=== PATIENT | female | born 1980 | race Caucasian/White ===

== ENCOUNTER 2020-12-04 10:38 | Outpatient (CLI) | payer OTHER | END 2020-12-04 10:49 | disposition home or self-care (01) | LOC: SONOGRAMA 10:38 | PROVIDERS: ATTEND Pathology Anatomic Pathology & Clinical Pathology | DX: E04.2 Nontoxic multinodular goiter (principal) ==

== ENCOUNTER → 2021-10-05 | Outpatient (CLI) | payer OTHER | END | disposition home or self-care (01) | LOC: RX STUDY 10:36 | DX: N97.1 Female infertility of tubal origin (principal) ==

== ENCOUNTER 2022-06-03 12:59 | Outpatient (CLI) | payer OTHER | END 2022-06-03 13:00 | disposition home or self-care (01) | LOC: SONOGRAMA 12:59 | DX: E04.2 Nontoxic multinodular goiter (principal) ==

== ENCOUNTER 2022-07-12 11:30 | Outpatient (CLI) | payer OTHER | END 2022-07-12 11:33 | disposition home or self-care (01) | LOC: SONOGRAMA 11:30 | PROVIDERS: ATTEND Pathology Anatomic Pathology & Clinical Pathology | DX: E04.2 Nontoxic multinodular goiter (principal) ==

== ENCOUNTER 2023-05-10 10:54 | Outpatient (CLI) | payer OTHER | END 2023-05-10 13:45 | disposition home or self-care (01) | LOC: MRI 10:54 | DX: E04.2 Nontoxic multinodular goiter (principal); R22.1 Localized swelling, mass and lump, neck; M54.59 Other low back pain; M54.2 Cervicalgia | CPT/HCPCS: 72149 ==

== ENCOUNTER 2023-11-11 12:30 | Emergency (ER) | payer OTHER ==
[~2023-11-11] VITALS: Ht 160 cm; Wt 65.8 kg
[2023-11-11 15:30] LABS: URINE APPEARANCE Clear; URINE BILIRRUBIN Negative (NEGATIVE); URINE BLOOD Negative; URINE COLOR Yellow; URINE GLUCOSE Negative (NEGATIVE); URINE LEUKOCYTE Negative; URINE NITRATE Negative; URINE PROTEIN Negative (NEGATIVE); URINE UROBILINOGEN 0.2 E.U./dl
[2023-11-11 15:31] LABS: HEMATOCRIT 38.7 % (36.0-45.00); HEMOGLOBIN 13.2 g/dL (12.0-15.00); MEAN CELL VOLUME 89.2 fL (80.00-100.00); MEAN CORPUSCULAR HEMOGLOBIN 30.4 pg (27.00-32.0); MEAN CORPUSCULAR HGB CONC 34.1 g/dl (32.0-36.0); PLATELET COUNT 355 K/uL (150-450); RED BLOOD COUNT 4.33 M/uL (4.00-6.00); RED CELL DISTRIBUTION WIDTH 13.8 % (11.5-14.5)
[2023-11-11 15:34] LABS: URINE BACTERIA 236.7 uL (0.0-1933); URINE EPITHELIAL CELLS 7.1 uL (0.0-38.8); URINE RBC 5.3 uL (0.0-20.8); URINE WBC 8.8 uL (0.0-23.2)
[2023-11-11 15:56] LABS: ALBUMIN 3.7 gm/dL (3.4-5.0); BILIRUBIN TOTAL 0.29 mg/dL (0.3-1.2); CALCIUM 9.2 mg/dL (8.5-10.1); CREATININE SERUM 0.73 mg/dL (0.55-1.02); GFR 87.85; GLOBULINA 4.4 G/DL (2.4-3.5); POTASSIUM 3.73 mEq/L (3.5-5.1); TOTAL PROTEIN 8.1 gm/dL (6.4-8.2)
[2023-11-11] MEDS ORDERED: CIPRO500 MG PO (17:46)
[2023-11-11] MEDS ORDERED: KETO10TA2 PO (17:46)
== END 2023-11-11 18:03 | disposition home or self-care (01) ==
LOC: ER 12:31
PROVIDERS: Nurse Practitioner Family
DX: I88.0 Nonspecific mesenteric lymphadenitis (principal); M54.89 Other dorsalgia

== ENCOUNTER 2024-02-09 07:32 | Outpatient (CLI) | payer OTHER ==
[~2024-02-09 07:32] MED LIST: CIPRO500 MG PO; KETO10TA2 PO
== END 2024-02-09 07:33 | disposition home or self-care (01) ==
LOC: NUCLEAR 07:32
DX: K30 Functional dyspepsia (principal); K31.84 Gastroparesis; K21.00 Gastro-esophageal reflux disease with esophagitis, without bleeding